=== PATIENT | female | born 1975 | race Caucasian/White ===

== ENCOUNTER → 2018-05-18 | Outpatient (CLI) | payer BC ==
[~2018-05-18] MED LIST: BALANCE PO; CHOL10003 PO; GARLIC PO; LORA-702 PO; MELO7.5T31 PO; MULT-516 PO; PSEU120T10 PO; THYR90TA PO; TURMERIC PO; [UNRECOGNIZED DRUG - OTHER] PO; [UNRECOGNIZED DRUG - OTHER] PO
== END | disposition home or self-care (01) ==
LOC: STAR 09:33
PROVIDERS: ATTEND Orthopaedic Surgery
DX: Z02.9 Encounter for administrative examinations, unspecified (principal)

== ENCOUNTER 2018-05-25 05:25 | Day surgery (SDC) | payer BC ==
[~2018-05-25] VITALS: Ht 172.7 cm; Wt 116.0 kg
[2018-05-25] MEDS ORDERED: FENTANYL PF 250 MCG/5ML ONE (06:12)
[2018-05-25] MEDS ORDERED: MIDAZOLAM 1 MG/ML, 2ML ONE (06:12)
[2018-05-25] MEDS ORDERED: SODIUM CHLORIDE 0.9% PF 10ML ONE (06:16)
[2018-05-25] MEDS ORDERED: ONDANSETRON 2MG/ML, 2ML ONE (06:16)
[2018-05-25] MEDS ORDERED: CEFAZOLIN 1,000 MG ONE ×2 (06:16)
[2018-05-25] MEDS ORDERED: DEXAMETHASONE 4 MG/ML, 1ML ONE ×2 (06:16)
[2018-05-25] MEDS ORDERED: ROPIvacaine/PF 0.5%, 30 ML ONE (06:25)
[2018-05-25] MEDS ORDERED: LIDOCAINE 1%-EPI 1:100K, 30ML ONE (06:25)
[2018-05-25] MEDS ORDERED: PROMETHAZINE 25 MG/ML, 1ML IM PRN ×2 (06:30)
[2018-05-25] MEDS ORDERED: hydrALAzine 20 MG/ML, 1ML IV PRN (06:30)
[2018-05-25] MEDS ORDERED: ACETAMINOPHEN 325 MG TABLET PO PRN (06:30)
[2018-05-25] MEDS ORDERED: HYDROmorphone 2 MG/ML, 1ML IVPush PRN (06:30)
[2018-05-25] MEDS ORDERED: ONDANSETRON ODT 8 MG PO PRN (06:30)
[2018-05-25] MEDS ORDERED: MORPHINE SULFATE 4 MG/ML, 1ML IVPush PRN (06:30)
[2018-05-25] MEDS ORDERED: PROMETHAZINE 25 MG/ML, 1ML IV PRN (06:30)
[2018-05-25] MEDS ORDERED: LABETALOL 5MG/ML, 20ML IV PRN (06:30)
[2018-05-25] MEDS ORDERED: HALOPERIDOL 5 MG/ML IV PRN (06:30)
[2018-05-25] MEDS ORDERED: PROMETHAZINE 25 MG SUPP PR PRN (06:30)
[2018-05-25] MEDS ORDERED: PROMETHAZINE 12.5 MG SUPP PR PRN (06:30)
[2018-05-25] MEDS ORDERED: ONDANSETRON 2MG/ML, 2ML IV PRN (06:30)
[2018-05-25] MEDS ORDERED: MEPERIDINE/PF 25MG/0.5ML IVPush PRN (06:30)
[2018-05-25 06:32] LABS: HCG UR SG 1.028 (1.003-1.030)
[2018-05-25] MEDS ORDERED: LACTATED RINGERS 1,000 ML IV SCH (06:54)
[2018-05-25] MEDS ORDERED: LIDOCAINE-MPF 1%, 2ML ONE (06:57)
[2018-05-25] MEDS ORDERED: LIDOCAINE-MPF 1%, 2ML INFIL ONE (07:00)
[2018-05-25] MEDS ORDERED: PROPOFOL 10 MG/ML, 20ML ONE (07:04)
[2018-05-25] MEDS ORDERED: ACETAMINOPHEN 650 MG/20.3 ML UDC ONE (07:54)
[2018-05-25] MEDS ORDERED: FENTANYL PF 100 MCG/2ML ONE (07:54)
[2018-05-25] MEDS ORDERED: OXYcodone 5 MG/5 ML ORAL.SOL UDC ONE (07:54)
[2018-05-25] MEDS: OXYcodone 5 MG/5 ML ORAL.SOL UDC PO PRN ×2 (07:56→09:26)
[2018-05-25] MEDS: FENTANYL PF 100 MCG/2ML IV PRN ×2 (07:59→08:05)
== END 2018-05-25 09:35 | disposition home or self-care (01) ==
LOC: OUT 05:25
PROVIDERS: ATTEND Orthopaedic Surgery
DX: S83.242A Other tear of medial meniscus, current injury, left knee, initial encounter (principal); S83.282A Other tear of lateral meniscus, current injury, left knee, initial encounter; X58.XXXA Exposure to other specified factors, initial encounter; Y93.9 Activity, unspecified; Y92.9 Unspecified place or not applicable; Y99.9 Unspecified external cause status; M65.9 Synovitis and tenosynovitis, unspecified; M22.42 Chondromalacia patellae, left knee; I10 Essential (primary) hypertension; E03.9 Hypothyroidism, unspecified; M19.90 Unspecified osteoarthritis, unspecified site; Z85.89 Personal history of malignant neoplasm of other organs and systems; Z79.899 Other long term (current) drug therapy; Z98.890 Other specified postprocedural states
CPT/HCPCS: 29880; 81025; J0690; J1100; J2250; J2405; J2704; J2795; J3010; J3490; J7120